=== PATIENT | female | born 1960 | race Two or more races ===

== ENCOUNTER 2024-08-12 08:32 | Emergency (ER) | payer MEDICAID, SELFPAY ==
[2024-08-12 08:34] VITALS: BP 141/95; PULSE 70; RESP 16; TEMP 36.4; O2SAT 97
[2024-08-12 08:35] VITALS: BMI 29.4
[2024-08-12 08:41] VITALS: PULSE 78; RESP 16; O2SAT 99
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
[2024-08-12] MEDS: IBUPROFEN TAB 600 MG TABLET PO (09:48)
[2024-08-12] MEDS: CYCLObenzaPRINE 5 MG TABLET PO (09:48)
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
== END 2024-08-12 12:50 | disposition home or self-care (01) ==
PROVIDERS: Emergency Provider Emergency Medicine; PCP Nurse Practitioner Primary Care
DX: S20.219A Contusion of unspecified front wall of thorax, initial encounter (principal); V89.9XXA Person injured in unspecified vehicle accident, initial encounter; Y92.413 State road as the place of occurrence of the external cause
CPT/HCPCS: 71046; 99283; A9270

== ENCOUNTER → 2025-06-18 | Outpatient (CLI) | payer MEDICAID, SELFPAY ==
--- NOTE | 2025-06-18 09:00 | XR_ITS ---
Exam: MRI knee without contrast, right Date and time of exam: June 18, 2025, 11:01 a.m. INDICATIONS: Medial knee pain joint clicking weakness 2 years Technique: Multiple axial, coronal, and sagittal sections on the knee have been obtained. T2-Weighted sagittal, fat-suppressed images, TR 3,500, TE 62, T2 weighted coronal fat-saturated images, TR 3,500, TE 62 Proton density sagittal sections, TR 1800, TE 31. T-1 weighted coronal images, TR 524, TE 13.0 Findings: Medial meniscus anterior horn intact. Medial meniscus, body horizontal linear tear communicating intermargin. Posterior horn medial meniscus horizontal linear tear communicating intermargin. Lateral meniscus anterior horn horizontal linear tear communicating intermargin Lateral meniscus, body is intact Posterior horn lateral meniscus is intact Anterior cruciate ligament moderate Posterior cruciate ligament appears intact. Knee effusion is moderate. Quadriceps and patellar tendons appear intact. There is no evidence of tendinosis. Inflammatory change or fracture of Hoffa's fat pad is not seen. Medial patellar facet demonstrates severe thinning. Lateral patellar facet cartilage demonstrates severe thinning. Trochlear cartilage demonstrates severe thinning. Marrow signal increased involving the medial femoral condyle with 14 mm area of osteochondritis dissecans medial femoral condyle. Medial collateral ligament appears intact. No meniscocapsular separation is seen. Illiotibial band and fibular collateral ligament are intact. Biceps femoris tendons appear intact. Medial femoral condylar articular cartilage demonstrates severe thinning. Lateral femoral condylar articular cartilage demonstrates moderate thinning. Tibial plateau cartilage demonstrates severe medial thinning. 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
== END | disposition home or self-care (01) ==
LOC: SMRI 08:35
PROVIDERS: PCP Nurse Practitioner Family; Referring Provider Nurse Practitioner Family; Visit Provider Nurse Practitioner Family
DX: S83.281A Other tear of lateral meniscus, current injury, right knee, initial encounter (principal); S83.241A Other tear of medial meniscus, current injury, right knee, initial encounter; S83.501A Sprain of unspecified cruciate ligament of right knee, initial encounter; X58.XXXA Exposure to other specified factors, initial encounter
CPT/HCPCS: 73721